=== PATIENT | female | born 1975 | race Caucasian/White ===

== ENCOUNTER 2018-03-29 12:07 | Emergency (ER) | payer MEDICARE, MEDICAID ==
--- NOTE | 2018-03-29 12:26 | EDM.PDOC ---
ED HPI GENERAL MEDICAL PROBLEM - General Stated Complaint: FACE INJURY Time Seen by Provider: 03/29/18 12:07 Source of Information: Reports: Patient, Family History Limitations: Reports: No Limitations - History of Present Illness INITIAL COMMENTS - FREE TEXT/NARRATIVE: 42 y.o.w.f with DM, living in a jail, came with her career services officer to the ed after she fell onto her face while turning to the side. 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 She noticed a loos upper frontal tooth, her upper lip is swollen, no other acute medical issues. BP 121/ 78 RR 16 Temp 98.2 Pulse 85 O2 sat 99% on RA Onset Date: 03/29/18 Onset Time: 10:00 Duration: Minutes:, Intermittent Location: Reports: Face Quality: Reports: Ache Severity: Mild Improves with: Reports: Rest Worsens with: Reports: Movement Context: Reports: Trauma (to face) Associated Symptoms: Reports: No Other Symptoms - Related Data Allergies Allergy/AdvReac Type Severity Reaction Status Date / Time No Known Allergies Allergy Verified 03/29/18 13:37 Home Meds: Home Meds Amoxicillin/Potassium Clav [Augmentin 875-125 Tablet] 1 each PO BID #20 tablet 03/29/18 [Rx] Past Medical History HEENT History: Reports: Other (See Below) Other HEENT History: wears glasses Musculoskeletal History: Reports: Fracture Neurological History: Reports: Seizure Psychiatric History: Reports: Developmental Delay ED ROS GENERAL - Review of Systems Review Of Systems: See Below Constitutional: Reports: No Symptoms HEENT: Reports: Dental Pain Respiratory: Reports: No Symptoms Cardiovascular: Reports: No Symptoms Endocrine: Reports: No Symptoms GI/Abdominal: Reports: No Symptoms : Reports: No Symptoms Musculoskeletal: Reports: No Symptoms Skin: Reports: No Symptoms Neurological: Reports: No Symptoms Psychiatric: Reports: No Symptoms Hematologic/Lymphatic: Reports: No Symptoms Immunologic: Reports: No Symptoms ED EXAM, HEAD INJURY - Physical Exam Exam: See Below Exam Limited By: No Limitations General Appearance: Alert, WD/WN, No Apparent Distress Head: Normocephalic, Facial Swelling, Other (right maxilary incisor is fractured ) Eyes: Bilateral Eye: Normal Inspection Ears: Normal External Exam, Normal Canal, Hearing Grossly Normal Nose: Normal Inspection, Normal Mucousa, No Blood Throat/Mouth: Dental Trauma (maxilari incisor fx), Lip Swelling Neck: Non-Tender, Full Range of Motion, Normal Alignment, Normal Inspection Respiratory: No Respiratory Distress, Lungs Clear, Normal Breath Sounds, No Accessory Muscle Use, Chest Non-Tender Cardiovascular: Normal Peripheral Pulses, Regular Rate, Rhythm, No Edema, No Gallop, No JVD, No Murmur, No Rub GI/Abdominal Exam: Normal Bowel Sounds, Soft, Non-Tender, No Organomegaly, No Distention, No Abnormal Bruit, No Mass, Pelvis Stable (Female) Exam: Deferred Rectal (Female) Exam: Deferred Back Exam: Normal Inspection, Full Range of Motion Extremities: Normal Inspection, Normal Range of Motion, Non-Tender, No Pedal Edema, Normal Capillary Refill Neurologic: religious leader II-XII nml As Tested, No Motor/Sensory Deficits, Alert, Normal Mood/Affect, Oriented x 3 - Kali Coma Score Best Eye Response (Kali): (4) Open Spontaneously Best Verbal Response (Kali): (5) Oriented Best Motor Response ([place]): (6) Obeys Commands [place] Total: 15 Course - Vital Signs Text/Narrative:: 42 y.o.w.f with DM, living in a jail, came with her career services officer to the ed after she fell onto her face while turning to the side. 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 She noticed a loos upper frontal tooth, her upper lip is swollen, no other acute medical issues. BP 121/ 78 RR 16 Temp 98.2 Pulse 85 O2 sat 99% on RA PE: 42 y.o.w.f from jail came with her career services officer after Pt fell on face. Imaging: right maxillary central incisor fracture as per RAD lab: WWC nl HGB nl BUN 18/Ce 08 BUN/CR elevated A1C 6.4 Impression: Fall, dehydration, Fracture of right maxillary incisor, dehydration DM. A1C elevated Tx: Augmentin as prescription, water Reexam: Orthostatics were neg, improved Plan: D/C with an instructions, f/u with a dentist - Orders/Labs/Meds Orders: Active Orders 24 hr Category Date Time Status Orthostatic Vital Signs [RC] ASDIRECTED Care 03/29/18 13:28 Active UA W/MICROSCOPIC [URIN] Stat Lab 03/29/18 13:07 Ordered Labs: Laboratory Tests 03/29/18 03/29/18 03/29/18 Range/Units 13:06 13:06 13:06 WBC 8.1 (4.5-12.0) X10-3/uL RBC 5.01 (3.23-5.20) x10(6)uL Hgb 16.3 H (11.5-15.5) g/dL Hct 48.6 (30.0-51.3) % MCV 97.0 H (80-96) fL MCH 32.6 (27.7-33.6) pg MCHC 33.6 (32.2-35.4) g/dL RDW 12.1 (11.5-15.5) % Plt Count 171 (125-369) X10(3)uL MPV 8.4 (7.4-10.4) fL Neut % (Auto) 40.3 L (46-82) % Lymph % (Auto) 50.1 H (13-37) % [place] % (Auto) 7.8 (4-12) % Eos % (Auto) 1 (1.0-5.0) % Baso % (Auto) 1 (0-2) % Neut # (Auto) 3.3 (1.6-8.3) # Lymph # (Auto) 4.0 (0.6-5.0) # [place] # (Auto) 0.6 (0.0-1.3) # Eos # (Auto) 0.1 (0.0-0.8) # Baso # (Auto) 0.1 (0.0-0.2) # Sodium 138 (135-145) mmol/L Potassium 4.6 (3.5-5.3) mmol/L Chloride 101 (100-110) mmol/L Carbon Dioxide 28 (21-32) mmol/L BUN 18 (7-18) mg/dL Creatinine 0.8 (0.55-1.02) mg/dL Est Cr Clr Drug Dosing TNP Estimated GFR (MDRD) > 60 (>60) BUN/Creatinine Ratio 22.5 H (9-20) Glucose 211 H (80-116) mg/dL Hemoglobin A1c 6.4 H (4.5-6.2) % Calcium 9.2 (8.6-10.2) mg/dL Urine Color (YELLOW) Urine Appearance (CLEAR) Urine pH (5.0-6.5) Ur Specific [place] (1.010-1.025) Urine Protein (NEGATIVE) mg/dL Urine Glucose (UA) (NEGATIVE) mg/dL Urine Ketones (NEGATIVE) mg/dL Urine Occult Blood (NEGATIVE) Urine Nitrite (NEGATIVE) Urine Bilirubin (NEGATIVE) Urine Urobilinogen (NEGATIVE) mg/dL Ur Leukocyte Esterase (NEGATIVE) Urine RBC (0) Urine WBC (0) Ur Squamous Epith Cells (NS,R,O) Urine Bacteria (NS) Urine Mucus (NS) 03/29/18 Range/Units 13:07 WBC (4.5-12.0) X10-3/uL RBC (3.23-5.20) x10(6)uL Hgb (11.5-15.5) g/dL Hct (30.0-51.3) % MCV (80-96) fL MCH (27.7-33.6) pg MCHC (32.2-35.4) g/dL RDW (11.5-15.5) % Plt Count (125-369) X10(3)uL MPV (7.4-10.4) fL Neut % (Auto) (46-82) % Lymph % (Auto) (13-37) % [place] % (Auto) (4-12) % Eos % (Auto) (1.0-5.0) % Baso % (Auto) (0-2) % Neut # (Auto) (1.6-8.3) # Lymph # (Auto) (0.6-5.0) # [place] # (Auto) (0.0-1.3) # Eos # (Auto) (0.0-0.8) # Baso # (Auto) (0.0-0.2) # Sodium (135-145) mmol/L Potassium (3.5-5.3) mmol/L Chloride (100-110) mmol/L Carbon Dioxide (21-32) mmol/L BUN (7-18) mg/dL Creatinine (0.55-1.02) mg/dL Est Cr Clr Drug Dosing Estimated GFR (MDRD) (>60) BUN/Creatinine Ratio (9-20) Glucose (80-116) mg/dL Hemoglobin A1c (4.5-6.2) % Calcium (8.6-10.2) mg/dL Urine Color Yellow (YELLOW) Urine Appearance Clear (CLEAR) Urine pH 5.0 (5.0-6.5) Ur Specific [place] 1.010 (1.010-1.025) Urine Protein Negative (NEGATIVE) mg/dL Urine Glucose (UA) >1000 H (NEGATIVE) mg/dL Urine Ketones Negative (NEGATIVE) mg/dL Urine Occult Blood Negative (NEGATIVE) Urine Nitrite Negative (NEGATIVE) Urine Bilirubin Negative (NEGATIVE) Urine Urobilinogen Normal (NEGATIVE) mg/dL Ur Leukocyte Esterase Negative (NEGATIVE) Urine RBC 0-5 (0) Urine WBC 5-10 (0) Ur Squamous Epith Cells Many H (NS,R,O) Urine Bacteria Occasional H (NS) Urine Mucus Rare H (NS) Departure - Departure Time of Disposition: 14:07 Disposition: Home, Self-Care 01 Condition: Good Clinical Impression: Fall Qualifiers: Encounter type: initial encounter Qualified Code(s): W19.XXXA - Unspecified fall, initial encounter Tooth fracture Qualifiers: Encounter type: initial encounter Fracture type: closed Qualified Code(s): S02.5XXA - Fracture of tooth (traumatic), initial encounter for closed fracture - Discharge Information Prescriptions: Amoxicillin/Potassium Clav [Augmentin 875-125 Tablet] 1 each PO BID #20 tablet Referrals: Jensen Gar MD [Primary Care Provider] - Forms: ED Department Discharge Additional Instructions: Please take the Abx as recommends, please f/u with your dentist a.s.a.p please increase water intake, come back to the ED if your symptoms get worse acutely - My Orders Last 24 Hours: My Active Orders 03/29/18 13:07 UA W/MICROSCOPIC [URIN] Stat 03/29/18 13:28 Orthostatic Vital Signs [RC] ASDIRECTED - Assessment/Plan Last 24 Hours: My Active Orders 03/29/18 13:07 UA W/MICROSCOPIC [URIN] Stat 03/29/18 13:28 Orthostatic Vital Signs [RC] ASDIRECTED
--- NOTE | 2018-03-29 14:31 | CT ---
INDICATION: Fell, striking face. CT MAXILLOFACIAL AREA: Spiral 0.63 mm axial images were obtained with sagittal and coronal reconstructions of the facial bones. Examination was obtained 03/29 - no comparisons. Total exam DLP = 585.86 mGy-cm. There is an oblique fracture through the area of the root of the right maxillary central incisor. No significant displacement is seen. No bony fracture site was identified. Nasal bones appear to be intact. No air fluid levels are noted in the paranasal sinuses. There is some minimal thickening of the lining of the left maxillary antrum. Maxillary infundibula were patent, and the paranasal sinuses were otherwise well-aerated. IMPRESSION: Hairline fracture through the root of the right maxillary central incisor. Report was called to Dr. Gandhi at approximately 1300 hours on 03/29/2018. [facility]
[2018-03-29 15:19] VITALS: BP 121/78
== END 2018-03-29 14:20 | disposition home or self-care (01) ==
LOC: FB.ED 12:07
DX: S02.5XXA Fracture of tooth (traumatic), initial encounter for closed fracture (principal); E86.0 Dehydration; E11.9 Type 2 diabetes mellitus without complications; W19.XXXA Unspecified fall, initial encounter
CPT/HCPCS: 36415; 70486; 80048; 81001; 83036; 85025; 99284

== ENCOUNTER → 2019-09-17 | Outpatient (CLI) | payer MEDICARE, MEDICAID | LOC: FB.MH 08:00 | PROVIDERS: ATTEND Psychiatry & Neurology Psychiatry | DX: F29 Unspecified psychosis not due to a substance or known physiological condition (principal); F70 Mild intellectual disabilities | CPT/HCPCS: 99213 ==

== ENCOUNTER 2022-06-23 07:02 | Day surgery (SDC) | payer MEDICARE, MEDICAID ==
[~2022-06-23 07:02] MED LIST: Lactated Ringers 1,000 ML IV SCH; Sodium Chloride 0.9% 10 ML Syringe FLUSH PRN
[2022-06-23] MEDS ORDERED: Propofol 200 MG/20 ML SDV IV ONE (07:03)
[2022-06-23 10:14] VITALS: BP 140/68; PULSE 79
== END 2022-06-23 09:55 | disposition home or self-care (01) ==
LOC: FB.SDS 07:02
PROVIDERS: ATTEND Surgery
DX: Z12.11 Encounter for screening for malignant neoplasm of colon (principal); D12.0 Benign neoplasm of cecum; E11.9 Type 2 diabetes mellitus without complications; F32.A Depression, unspecified; Z79.899 Other long term (current) drug therapy; Z79.82 Long term (current) use of aspirin
CPT/HCPCS: 00812; 45385; 82947; 88305; J2704; J7120

== ENCOUNTER 2024-05-10 17:44 | Emergency (ER) | payer MEDICARE, MEDICAID ==
[2024-05-10] MEDS ORDERED: Sodium Chloride 0.9% 10 ML Syringe FLUSH PRN (18:11)
[2024-05-10 18:31] LABS: BASOPHILS ABSOLUTE AUTO 0.1 x10-3/uL (0.0-0.1); BASOPHILS PERCENT AUTO 0.8 % (0.2-1.5); EOSINOPHILS PERCENT AUTO 0.2 % (0.6-8.1); HEMATOCRIT 43.1 % (34.2-48.2); HEMOGLOBIN 14.1 g/dL (11.4-15.5); LYMPHOCYTES ABSOLUTE AUTO 2.1 x10-3/uL (1.0-4.4); LYMPHOCYTES PERCENT AUTO 16.4 % (18.4-52.1); MEAN CORPUSCULAR HEMOGLOBIN 31.6 pg (23.9-33.9); MEAN CORPUSCULAR HGB CONC 32.7 g/dL (31.9-34.8); MEAN CORPUSCULAR VOLUME 96.7 fL (76.7-100.5); MONOCYTES PERCENT AUTO 15.8 % (4.4-15.7); NEUTROPHILS ABSOLUTE AUTO 8.4 x10-3/uL (1.5-6.3); NEUTROPHILS PERCENT AUTO 66.8 % (30.8-76.2); PLATELET COUNT,PLT 180 x10(3)uL (151-488); RED BLOOD CELL COUNT 4.46 x10(6)uL (3.60-5.20); RED CELL DISTRIBUTION WIDTH 14.3 % (12.3-16.5); WHITE BLOOD CELL COUNT,WBC 12.7 x10-3/uL (3.0-10.3)
[2024-05-10 18:32] LABS: BLOOD UREA NITROGEN,BUN 17 mg/dL (7-18); BUN/CREATININE RATIO 24.3 (9-20); CARBON DIOXIDE,CO2 29 mmol/L (21-32); CHLORIDE,CL 104 mmol/L (100-110); CREATININE 0.7 mg/dL (0.55-1.02); ESTIMATED GFR 107 mL/min (>60); GLUCOSE RANDOM 173 mg/dL (80-116); SODIUM,NA 141 mmol/L (135-145)
[2024-05-10 18:32] LABS: BILIRUBIN,URINE NEGATIVE (NEGATIVE); GLUCOSE,URINE >1000 mg/dL (NORMAL); KETONES,URINE 15 mg/dL (NEGATIVE); LEUKOCYTE ESTERASE,URINE SMALL (NEGATIVE); NITRITE,URINE NEGATIVE (NEGATIVE); OCCULT BLOOD,URINE NEGATIVE (NEGATIVE); PROTEIN,URINE NEGATIVE (NEGATIVE); UROBILINOGEN,URINE NORMAL (NEGATIVE)
[2024-05-10 18:41] LABS: TROPONIN I 12.5 pg/mL (4.0-60.3)
[2024-05-10] MEDS: Acetaminophen 500 MG Tab PO ONE (18:41)
[2024-05-10 18:43] LABS: A/G RATIO 0.6; ALANINE AMINOTRANSFERASE,ALT 34 U/L (12-36); ALBUMIN 2.8 g/dL (3.5-5.2); ALKALINE PHOSPHATASE 63 IU/L (56-112); ASPARTATE AMNIOTRANSFERASE,AST 20 IU/L (5-25); BILIRUBIN TOTAL 0.4 mg/dL (0.1-1.3); MAGNESIUM 1.8 mg/dL (1.8-2.5); PROTEIN TOTAL,TP 7.8 g/dL (6.0-8.0)
[2024-05-10 18:49] LABS: C-REACTIVE PROTEIN 14.12 mg/dL (<0.50)
[2024-05-10] MEDS: Sodium Chloride 0.9% 500 ML IV ONE (18:52)
[2024-05-10 18:58] LABS: APPEARANCE,URINE CLEAR (CLEAR); BACTERIA,URINE MODERATE (NS); COLOR,URINE YELLOW (YELLOW); RBC,URINE 0-5 (0-5); SQUAMOUS EPITHELIAL CELLS,UR FEW (NS,R,O)
[2024-05-10 18:58] LABS: BASE EXCESS VENOUS,POC 3 mmol/L (-2 - 3+); PCO2 VENOUS,POC 37 mmHg (41-51); PH VENOUS,POC 7.46 pH Units (7.32-7.43)
[2024-05-10 19:34] VITALS: BP 129/62; PULSE 120
[2024-05-10] MEDS: Iopamidol 755 Mg/ML 100 ML Bottle IV SCH (19:46)
[2024-05-10] MEDS: cefTRIAXone 2 GM Vial IVPUSH ONE (22:13)
[2024-05-10] MEDS: Levofloxacin 750 MG Tab PO ONE (22:14)
== END 2024-05-10 22:35 ==
LOC: FB.ED 17:44
DX: J18.9 Pneumonia, unspecified organism (principal); E86.0 Dehydration; N39.0 Urinary tract infection, site not specified; E11.9 Type 2 diabetes mellitus without complications; Z79.899 Other long term (current) drug therapy; Z79.82 Long term (current) use of aspirin; Z79.84 Long term (current) use of oral hypoglycemic drugs
CPT/HCPCS: 71046; 71275; 80053; 81001; 83605; 83735; 84484; 85025; 85379; 86140; 93005; 96361; 96374; 99285; A9270; J0696; J7040; Q9967